=== PATIENT | female | born 1980 | race African-American/Black ===

== ENCOUNTER 2021-12-05 21:47 | Emergency (ER) | payer SELFPAY ==
[2021-12-05 22:41] LABS: ALT (SGPT) 16 U/L (8-55); AST (SGOT) 19 U/L (5-34); Albumin 4.1 g/dL (3.5-5.0); Alkaline Phosphatase 60 U/L (40-110); Anion Gap 13 mmol/L (10-20); BUN (Urea Nitrogen) 12 mg/dL (7.0-18.7); Bilirubin, Total 0.4 mg/dL (0.2-1.2); Calc. Creatinine Clearance 0 mL/min (70-130); Calcium 9.1 mg/dL (7.8-10.44); Carbon Dioxide 20 mmol/L (22-29); Chloride 109 mmol/L (98-107); Estimated GFR 91; Globulin 3.1 g/dL (2.4-3.5); Glucose 98 mg/dL (70-105); Potassium 3.3 mmol/L (3.5-5.1); Protein, Total 7.2 g/dL (6.0-8.3); Sodium 139 mmol/L (136-145)
[2021-12-05 22:45] LABS: #Eosinphils 0.2 10x3/uL (0.0-0.5); #Monocytes 0.4 10x3/uL (0.0-1.1); #Neutrophils 2.4 10x3/uL (1.5-8.4); %Basophils 0.5 % (0.0-2.0); %Eosinophils 3.1 % (0.0-6.0); %Lymphocytes 44.5 % (18.0-47.0); %Monocytes 7.7 % (0.0-10.0); %Neutrophils 44.2 % (40.0-75.0); Hemoglobin 9.9 g/dL (12.0-15.5); Mean Corpuscular HGB CONC 31.3 g/dL (32.0-36.0); Mean Corpuscular Hemoglobin 23.1 pg (27.0-33.0); Mean Corpuscular Volume 73.7 fl (81.6-98.3); Mean Platelet Volume 12.7 fl (7.4-10.4); Platelet Count 236 10x3/uL (150-450); RBC Distribution Width 16.8 % (11.5-14.5); Red Blood Cell (RBC) Count 4.29 10x6/uL (3.90-5.03); White Blood Cell (WBC) Count 5.5 10x3/uL (3.5-10.5)
== END 2021-12-06 01:27 | disposition home or self-care (01) ==
LOC: CSHERS 21:47
DX: R07.89 Other chest pain (principal); F43.20 Adjustment disorder, unspecified; I10 Essential (primary) hypertension
CPT/HCPCS: 71045; 80053; 84484; 85025; 85379; 93005

== ENCOUNTER 2022-08-15 23:17 | Emergency (ER) | payer SELFPAY ==
[2022-08-15 23:58] LABS: #Basophils 0.1 10x3/uL (0.0-0.2); #Eosinphils 0.2 10x3/uL (0.0-0.5); #Monocytes 0.5 10x3/uL (0.0-1.1); #Neutrophils 2.3 10x3/uL (1.5-8.4); %Eosinophils 3.8 % (0.0-6.0); %Lymphocytes 42.6 % (18.0-47.0); %Monocytes 9.4 % (0.0-10.0); Hemoglobin 8.9 g/dL (12.0-15.5); Mean Corpuscular HGB CONC 29.4 g/dL (32.0-36.0); Mean Corpuscular Hemoglobin 21.8 pg (27.0-33.0); Mean Corpuscular Volume 74.1 fl (81.6-98.3); Mean Platelet Volume 12.5 fl (7.4-10.4); Platelet Count 203 10x3/uL (150-450); Red Blood Cell (RBC) Count 4.09 10x6/uL (3.90-5.03); White Blood Cell (WBC) Count 5.2 10x3/uL (3.5-10.5)
[2022-08-16 00:16] LABS: ALT (SGPT) 21 U/L (8-55); AST (SGOT) 19 U/L (5-34); Albumin 3.8 g/dL (3.5-5.0); Alkaline Phosphatase 56 U/L (40-110); Anion Gap 13 mmol/L (10-20); BUN (Urea Nitrogen) 7 mg/dL (7.0-18.7); Bilirubin, Total 0.3 mg/dL (0.2-1.2); Calc. Creatinine Clearance 0 mL/min (70-130); Calcium 8.5 mg/dL (7.8-10.44); Carbon Dioxide 20 mmol/L (22-29); Chloride 110 mmol/L (98-107); Estimated GFR 92; Glucose 115 mg/dL (70-105); Potassium 3.6 mmol/L (3.5-5.1); Protein, Total 6.8 g/dL (6.0-8.3); Sodium 139 mmol/L (136-145)
[2022-08-16] MEDS ORDERED: Aspirin Chewable 81 MG TAB ONE (00:25)
[2022-08-16] MEDS ORDERED: Acetaminophen 500 MG TAB ONE (00:25)
[2022-08-16 00:40] LABS: Magnesium 1.9 mg/dL (1.6-2.6)
== END 2022-08-16 03:25 | disposition home or self-care (01) ==
LOC: CSHERS 23:17
DX: R07.89 Other chest pain (principal); R51.9 Headache, unspecified; R06.02 Shortness of breath; I10 Essential (primary) hypertension; Z79.899 Other long term (current) drug therapy
CPT/HCPCS: 71045; 80053; 83735; 83880; 84443; 84484; 85025; 85379; 93005; 94760

== ENCOUNTER 2024-03-25 01:43 | Emergency (ER) | payer SELFPAY ==
[2024-03-25] MEDS ORDERED: Dexamethasone 10 MG/ML VIAL ONE (02:15)
== END 2024-03-25 03:25 | disposition home or self-care (01) ==
LOC: CSHERS 01:43
DX: J10.1 Influenza due to other identified influenza virus with other respiratory manifestations (principal); I10 Essential (primary) hypertension
CPT/HCPCS: 71045; 87428; J1100